=== PATIENT | male | born 1950 | race Caucasian/White ===

== ENCOUNTER → 2016-10-31 | Outpatient (CLI) | payer BC, MEDICARE ==
--- NOTE | 2016-10-31 08:21 | US ---
EXAMINATION TYPE: US duplex aorta DATE OF EXAM: 10/31/2016 7:44 AM COMPARISON: NONE CLINICAL HISTORY: 65-year-old male Z13.9 Screening for disorder. TECHNIQUE: Multiple sonographic images of the abdominal aorta were obtained. FINDINGS: RENEWALS SPECIALIST NOTES: Technical limitations due to overlying bowel content, proximal aorta obscured. Abdominal Aorta: Proximal: obscured by overlying bowel content Mid: 1.8 x 1.7cm Distal: 1.4 x 1.5cm Right and left common iliac arteries: RT: 0.6 x 0.8cm LT: 0.7 x 0.8cm IMPRESSION: The upper abdominal aorta is obscured. No evidence for AAA within the remaining visualized portions.
== END | disposition home or self-care (01) ==
LOC: RADUSWWP 07:27
PROVIDERS: ATTEND Family Medicine
DX: Z13.9 Encounter for screening, unspecified (principal)
CPT/HCPCS: 93979

== ENCOUNTER → 2017-11-07 | Outpatient (CLI) | payer MEDICARE ==
--- NOTE | 2017-11-07 10:50 | CTL ---
EXAMINATION TYPE: CT Low Dose Lung DATE OF EXAM ORDERED: 11/07/2017 HISTORY: Long-term tobacco use. Lung cancer screening CT DLP: [address] CTDI: 1.91 mGy Automated exposure control for dose reduction was used. SCREENING VISIT: Initial study COMPARISON: None TECHNIQUE: Low dose computed tomography scan was performed through the chest at 1 mm thick sections a nd reconstructed images in the coronal plane at [address] DIAGNOSTIC QUALITY: Limited, but interpretable Some motion artifact degradation is present inferiorly. Slightly suboptimal due to body habitus. FINDINGS: LUNG NODULES: Present, detailed below: A 4 x 3 mm irregular nodule abutting fissure axial image 158 right midlung. A 12 x 12 mm lobulated nodule with central calcification right lower lobe axial image 162 LUNGS: COPD: Severity: None Fibrosis: Severity: None Lymph nodes: No greater than 1 cm Other findings: No significant finding BILATERAL PLEURAL SPACE: Effusion: None Calcification: None Thickening: None Pneumothorax: None HEART: Heart Size: Normal Coronary calcification: None Pericardial effusion: None OTHER FINDINGS: Upper abdomen: None Bony thorax: Mild to moderate multilevel spurring most prominent lower thoracic spine. Slight S-shape d scoliosis is present. Supraclavicular region: No suspicious findings Other: No suspicious findings. IMPRESSION: There is 12 x 12 mm lobulated nodule right lower lobe with does have some benign central calcified component. FOLLOW UP CT CHEST RECOMMENDATION: Advise PET CT CT LUNG RAD: Lung-Rad 4A Suspicious Calcified component would increase possibility for nonmalignant finding. Advise PET/CT to make sure n o hypermetabolic uptake.
== END | disposition home or self-care (01) ==
LOC: RADCTMAIN 08:13
PROVIDERS: ATTEND Family Medicine
DX: Z12.2 Encounter for screening for malignant neoplasm of respiratory organs (principal); R91.1 Solitary pulmonary nodule; Z87.891 Personal history of nicotine dependence

== ENCOUNTER → 2017-11-18 | Outpatient (CLI) | payer MEDICARE ==
--- NOTE | 2017-11-20 09:20 | PE ---
EXAMINATION TYPE: PET CT fusion skull to thigh DATE OF EXAM: 11/18/2017 COMPARISON: CT low dose lung screening CT November 07, 2017 HISTORY: Solitary pulmonary nodule, abnormal CT TECHNIQUE: Following the intravenous administration of 11.66 mCi of F-18 FDG, whole body images are performed from the skull base to the midthigh. Images are reviewed on the computer in the coronal, a xial, and sagittal planes. Reconstructed rotating images are created on independent workstation and reviewed on the computer. A noncontrast CT is performed in conjunction with the PET scan. SCAN: Initial Scan FINDINGS: SKULL BASE AND NECK: No suspicious hypermetabolic uptake is seen. CHEST, MEDIASTINUM, AND HILAR REGION: Corresponding to CT there is a 13 x 12 mm nodule in the superio r aspect right lower lobe axial image 106, there is central calcification. No hypermetabolic uptake i s present. There is stable 3 x 2 mm nodule abutting fissure right midlung axial image 105. No abnorma l hypermetabolic uptake is present. ABDOMEN AND PELVIS: No suspicious hypermetabolic uptake is seen. OSSEOUS STRUCTURES: No suspicious hypermetabolic uptake is identified. OTHER CT: Mild to moderate calcified plaque bilateral carotid bulbs is present. There are simple appearing 3.9 cm cyst medially in the left kidney mid to lower pole level. There is moderate calcified plaque of aorta extending into branch vessels. There is slight S-shaped scoliosis. There is facet arthropathy lower lumbar levels. There is multilev el spurring in the spine. IMPRESSION: No suspicious hypermetabolic uptake is seen to suggest malignancy. Suspect benign calcifi ed granuloma. Advise continuing annual low-dose lung screening CT.
== END | disposition home or self-care (01) ==
LOC: RADPETMAIN 07:56
PROVIDERS: ATTEND Family Medicine
DX: R91.8 Other nonspecific abnormal finding of lung field (principal)
CPT/HCPCS: 78815; A9552

== ENCOUNTER → 2018-06-15 | Outpatient (CLI) | payer MEDICARE ==
--- NOTE | 2018-06-15 20:08 | ECHOS ---
STRESS ECHOCARDIOGRAM INDICATIONS: Chest pain. MEDICATIONS: BASELINE HEART RATE: 57 BASELINE BLOOD PRESSURE: 143/57 MAXIMUM HEART RATE: 132 MAXIMUM BLOOD PRESSURE: 187/66 85% MPHR: 130 100% MPHR: 153 METS: 11.7 MAXIMUM STAGE REACHED: 4 TOTAL EXERCISE TIME: 10:15. PROTOCOL: Stress echo CLINICAL INFORMATION: Baseline rhythm is a sinus mechanism, rate of 57, normal axis, poor R-wave progression. Baseline blood pressure 143/57 mmHg. Patient exercised on Warren protocol for 10 minutes 15 seconds, reaching a peak rate of 132 beats per minute, which is equal to 86% maximum predicted heart rate. Peak blood pressure 187/66 mmHg. Test was stopped there was no chest pain. Electrocardiograph monitoring revealed no evidence of diagnostic ischemic ST deviation. Rare PVCs were noted. FINDINGS: Baseline echocardiogram revealed normal wall thickening and motion at peak exercise. There was normal wall motion augmentation with no hypokinesis or dyskinesis. CONCLUSION: 1. Good exercise tolerance with normal electrocardiographic response to exercise. 2. Normal stress echocardiogram with no evidence of stress-induced ischemia. MMODL / IJN: [id number] /
== END ==
LOC: RADNMMAIN 08:59
PROVIDERS: ATTEND Family Medicine
DX: R07.89 Other chest pain (principal)
CPT/HCPCS: 93351

== ENCOUNTER → 2019-01-07 | Outpatient (CLI) | payer MEDICARE ==
--- NOTE | 2019-01-08 08:51 | CT ---
EXAMINATION TYPE: CT chest wo con DATE OF EXAM: 01/07/2019 COMPARISON: 11/07/2017 HISTORY: Follow up nodules. CT DLP: [address] of the chest was performed with lung and mediastinal window settings submitted. The la ck of contrast limits evaluation of the vascular, mediastinal and parenchymal structures including th e upper abdomen. LUNGS: The lungs are clear and free of infiltrate. No atelectasis. Dilated calcified nodule right low er lobe medially measures 13 x 12 mm. Stable 3 mm nodule abutting the fissure. No new nodules are see n. No pleural effusion. No CT evidence of interstitial lung disease. MEDIASTINUM/VIVI: Thoracic aorta is of normal caliber with limited evaluation given lack of contrast . The heart is not enlarged. No evidence for mediastinal mass. No lymph nodes greater than 1cm. UPPER ABDOMEN: No significant abnormality is seen. OTHER: No significant other abnormality. IMPRESSION: 1. Stable pulmonary nodularity.
== END | disposition home or self-care (01) ==
LOC: RADCTMAIN 16:41
PROVIDERS: ATTEND Family Medicine
DX: R91.1 Solitary pulmonary nodule (principal)
CPT/HCPCS: 71250

== ENCOUNTER → 2020-01-04 | Outpatient (CLI) | payer MEDICARE ==
--- NOTE | 2020-01-05 20:54 | CT ---
EXAMINATION TYPE: CT chest wo con DATE OF EXAM: 01/04/2020 COMPARISON: 01/07/2019 and 11/07/2017 HISTORY: 69-year-old male R91.1, f/u lung nodules TECHNIQUE: Contiguous axial scanning of the chest without IV contrast. Coronal and sagittal reconstru ctions performed. CT DLP: 227.9 mGycm Automated exposure control for dose reduction was used. FINDINGS: The heart is normal size without pericardial effusion. Minimal scattered coronary artery calcificatio ns are present. Aorta normal caliber with minimal atherosclerotic arch calcifications and conventional arch vessel br anching anatomy. Borderline to mildly enlarged caliber to the main right and left pulmonary arteries at 2.7 and 2.5 cm , respectively, suggesting underlying pulmonary arterial hypertension. Scattered nonenlarged mediastinal lymph nodes are present. No thoracic lymphadenopathy by CT size cri teria. 4 mm pulmonary nodule right midlung along the major fissure is unchanged. 3 mm peripheral left lower lobe pulmonary nodule, axial image 51 is unchanged. Lobulated 1.4 cm nodule within the right lower lobe containing coarse central calcification remains u nchanged from 11/07/2017. Minimal emphysematous change. No consolidation or pleural effusion. Small hiatal hernia. Small fat-containing left Bochdalek hernia. Partially visualized 4.2 cm cyst chris trally within the left kidney and moderate atherosclerotic calcifications infrarenal abdominal aorta. Bones: Moderate degenerative disc disease lower thoracic spine. Accentuated lower thoracic kyphosis. IMPRESSION: 1. MINIMAL EMPHYSEMATOUS CHANGE. 2. STABLE 1.4 CM LOBULATED NODULE WITHIN THE RIGHT LOWER LOBE CONTAINING COARSE CENTRAL CALCIFICATION . GIVEN STABILITY FOR OVER 2 YEARS, A BENIGN ETIOLOGY IS SUGGESTED. RECOMMEND RETURNING THE PATIENT T O ANNUAL LOW-DOSE LUNG CANCER SCREENING CT. 3. A COUPLE ADDITIONAL TINY PULMONARY NODULES MEASURING UP TO 4 MM ARE ALSO UNCHANGED AND BENIGN. 4. SMALL HIATAL HERNIA.
== END | disposition home or self-care (01) ==
LOC: RADCTMAIN 07:35
PROVIDERS: ATTEND Family Medicine
DX: J43.9 Emphysema, unspecified (principal); R91.8 Other nonspecific abnormal finding of lung field; J98.4 Other disorders of lung
CPT/HCPCS: 71250

== ENCOUNTER 2021-06-14 11:53 | Emergency (ER) | payer MEDICARE ==
[2021-06-14 14:31] VITALS: BP 129/74; RESP 16
[2021-06-14] MEDS ORDERED: SODIUM CHLORIDE 0.9% 50 ML IVPB ONE (17:00)
[2021-06-14] MEDS ORDERED: CASIRIVIMAB/IMDEVIMAB (EUA) 1,200 MG in SODIUM CHLORIDE 0.9% 100 ML IVPB ONE (17:00)
--- NOTE | 2021-06-14 17:30 | ED ---
General Adult HPI - General Chief complaint: Upper Respiratory Infection Stated complaint: Covid +, wants BAM Time Seen by Provider: 06/14/21 15:58 Source: patient, RN notes reviewed, old records reviewed Mode of arrival: ambulatory Limitations: no limitations - History of Present Illness Initial comments: Patient is a 70-year-old male with past medical history remarkable for hypertension, thyroid disorder presents emergency Department seeking monoclonal antibody therapy. Patient was not vaccinated for COVID-19. Patient has an at- home COVID-19 test yesterday that was positive. Patient is complaining of generalized joint pain and mild fatigue but denies anything other than mild rhinorrhea and upper respiratory symptoms including a nonproductive cough. Denies any chest pain, abdominal pain, nausea, vomiting. Denies diarrhea. His no other acute point at this time. Presents to the emergency department seeking monoclonal antibody therapy. - Related Data Home Medications Medication Instructions Recorded Confirmed Cetirizine HCl [Zyrtec] 10 mg PO DAILY 06/14/21 06/14/21 Cider Vinegar [Apple Cider Vinegar] 600 mg PO DAILY 06/14/21 06/14/21 Ibuprofen [Motrin] 600 mg PO Q8HR PRN 06/14/21 06/14/21 Levothyroxine Sodium [Synthroid] 125 mcg PO DAILY 06/14/21 06/14/21 Losartan Potassium [Cozaar] 100 mg PO DAILY 06/14/21 06/14/21 Mv-Min/Vit C/Glut/Lysine/Hb124 1 tablet PO DAILY 06/14/21 06/14/21 [Immune Support Chewable Tablet] Omeprazole 40 mg PO DAILY 06/14/21 06/14/21 Allergies Allergy/AdvReac Type Severity Reaction Status Date / Time No Known Allergies Allergy Verified 06/14/21 17:38 Review of Systems ROS Statement: Those systems with pertinent positive or pertinent negative responses have been documented in the HPI. Review of Systems: CONST: Denies fever EYES: Denies blurry vision ENT: Endorses nasal congestion C/V: Denies Chest pain RESP: Denies shortness of breath GI: Denies abdominal pain : Denies dysuria SKIN: Denies rash. MSK: Endorses joint pain NEURO: Denies headache ROS Other: All systems not noted in ROS Statement are negative. Past Medical History Past Medical History: Hypertension, Thyroid Disorder History of Any Multi-Drug Resistant Organisms: None Reported Past Surgical History: No Surgical Hx Reported Past Psychological History: No Psychological Hx Reported Smoking Status: Former smoker Past Alcohol Use History: None Reported Past Drug Use History: None Reported General Exam - General Exam Comments Initial Comments: General: Appears in no acute distress. HEAD: Normal with no signs of head trauma. EYES: EOMI. ENT: Hearing grossly intact, normal oropharynx. RESPIRATORY: Clear breath sounds bilaterally. No wheezes, rales, or rhonchi. C/V: Regular rate and rhythm. S1 and S2 auscultated, no edema, peripheral pulses 2+ and intact throughout ABD: Abd is soft, nontender, nondistended EXT: Normal range of motion, no obvious deformity SKIN: No rashes or lesions observed on exposed skin. NEURO: Alert and oriented 4. Limitations: no limitations Course Vital Signs 06/14/21 06/14/21 14:28 17:39 Temperature 97.8 F 98.9 F Pulse Rate 57 L 52 L Respiratory 16 16 Rate Blood Pressure 129/74 129/74 O2 Sat by Pulse 99 97 Oximetry Medical Decision Making - Medical Decision Making Based on the patient's presentation and physical exam, patient is be COVID-19 positive. He does meet criteria for an alcohol antibody therapy. We will repeat the test and administered therapy. I do not believe that he requires further laboratory studies or imaging at this time. Patient was in agreement this plan. Covid test is positive. Patient was administered monoclonal antibody therapy. He tolerated therapy well. No reactions. Patient was discharged home. I instructed the patient to follow up with their PCP in the next 3 days. I explained that the patient should return to the emergency department if they experience any worsening symptoms. Strict return precautions were discussed with the patient. The patient expressed understanding of these instructions. I answered all questions that the patient had. The patient was discharged home in good condition with their prescriptions and follow up information. - Lab Data Lab Results 06/14/21 Range/Units 16:21 Coronavirus (PCR) Detected A (Not Detectd) Disposition Clinical Impression: COVID-19 virus infection Disposition: HOME SELF-CARE Condition: Good Instructions (If sedation given, give patient instructions): Coronavirus Disease 2019 (COVID-19) Is patient prescribed a controlled substance at d/c from ED?: No Referrals: Raleigh Keating MD [Primary Care Provider] - 1-2 days
[2021-06-14 17:40] VITALS: PULSE 52; TEMP 98.9
== END 2021-06-14 18:10 | disposition home or self-care (01) ==
LOC: EC 11:53
DX: U07.1 COVID-19 (principal); I10 Essential (primary) hypertension; E07.9 Disorder of thyroid, unspecified; Z87.891 Personal history of nicotine dependence
CPT/HCPCS: 99283; 87635; Q0243

== ENCOUNTER → 2021-07-06 | Outpatient (CLI) | payer MEDICARE ==
--- NOTE | 2021-07-06 20:13 | CT ---
EXAMINATION TYPE: CT brain wo con DATE OF EXAM: 07/06/2021 COMPARISON: 08/17/2011 HISTORY: facial drooping on left and vision changes CT DLP: 1145.4 mGycm Automated exposure control for dose reduction was used. Ventricles have normal size. There is no mass effect nor midline shift. There is no sign of intracran ial hemorrhage. Calvarium is intact. Skull base is intact. There is normal aeration of the mastoid si nuses. IMPRESSION: Negative CT scan of the brain. No change.
== END | disposition home or self-care (01) ==
LOC: RADCTMAIN 19:36
PROVIDERS: ATTEND Family Medicine
DX: G81.90 Hemiplegia, unspecified affecting unspecified side (principal); H53.9 Unspecified visual disturbance
CPT/HCPCS: 70450

== ENCOUNTER → 2024-09-26 | Outpatient (CLI) | payer MEDICARE ==
--- NOTE | 2024-09-26 12:48 | CT ---
EXAMINATION TYPE: CT chest wo con DATE OF EXAM: 09/26/2024 11:46 AM COMPARISON: CT 01/04/2020 CLINICAL INDICATION: Male, 73 years old with history of R91.1 SOLITARY PULMONARY NODULE; PULMONARY NO DULE TECHNIQUE: Multiple axial images were obtained through the chest. Sagittal and coronal reformats were created for review. MIP was performed on a separate workstation. Contrast used: mL of (None if empty) Oral contrast used: (None if empty) CT DLP: 242.5 mGycm, Automated exposure control for dose reduction was used. FINDINGS: LUNGS/ PLEURA: * 2 mm pulmonary nodule series 3 image 16.r right lower lobe centrally calcified nodule similar papo uring up to 11 mm. * Left posterior Bochdalek fat-containing hernia. No new or enlarging pulmonary nodules. * No focal consolidation, pneumothorax or pleural effusion. Mild centrilobular emphysema changes. AIRWAY: Patent and unremarkable. HEART: Size within normal limits. No significant coronary artery calcifications. MEDIASTINUM: No gross evidence of adenopathy. Small paraesophageal hernia. VASCULATURE: Atherosclerotic calcifications are present throughout the aorta and its branches. MUSCULOSKELETAL: Moderate disc degeneration changes are present throughout the thoracolumbar spine se condary to osteophyte formation and facet joint arthropathy. SOFT TISSUES/LYMPH NODES: Unremarkable. LOWER NECK: No significant findings. UPPER ABDOMEN: Left renale sinus cysts measuring at least 4.3 cm. IMPRESSION: 1. Stable left lower lobe centrally calcified nodule and right upper lobe 2 mm nodule. No suspicious pulmonary nodules. Consider a yearly low-dose lung cancer screening. 2. Small hiatal hernia. 3. Mild emphysema. [facility], , 09/26/2024 12:45 PM
== END | disposition home or self-care (01) ==
LOC: RADCTMAIN 11:19
PROVIDERS: ATTEND Family Medicine
DX: J43.9 Emphysema, unspecified (principal); R91.1 Solitary pulmonary nodule; K44.9 Diaphragmatic hernia without obstruction or gangrene
CPT/HCPCS: 71250